=== PATIENT | male | born 1980 | race African-American/Black ===

== ENCOUNTER 2019-02-24 19:56 | Emergency (ER) | payer OTHER ==
[~2019-02-24] VITALS: Ht 175.3 cm; Wt 64.9 kg
[2019-02-24 20:01] VITALS: BP 142/78
--- NOTE | 2019-02-24 20:01 | NUR ---
ER Nurse Note: Pt BIB[place] [address] from [employer]. Per [employer], pt fell jumping fence, LT hand puncture. Pt got bit by [employer] K[employer]9 on LT foot. [employer] at pt side abnd signed log. Lac on RT thigh and anderson, no active bleeding; assessed by ER PA. Will continue to montior
[2019-02-24] MEDS ORDERED: Augmentin 875mg Tab ORAL ONE (20:15)
[2019-02-24] MEDS ORDERED: Acetaminophen 500mg (ES) tab ORAL ONE (20:15)
[2019-02-24] MEDS ORDERED: Albuterol ud Inhalation HHN ONE (20:15)
--- NOTE | 2019-02-24 20:35 | NUR ---
ER Nurse Note: Pt at radiology with [employer]. Active bleeding from buttocks; pt refuses to assess site. Breathing treatment adnibsited by Rt; all meds given and pt tolerated well. Pt a&ox3, follow commands, pt feeling anxious and hostile. Will continue to montior.
--- NOTE | 2019-02-24 21:06 | Diagnostic Imaging Report ---
Indication: Right hip pain Technique: 2 views of the right hip Comparison: none Findings: No acute fractures. No dislocations. The joint spaces are preserved Impression: Negative This agrees with the preliminary interpretation provided overnight by [facility] teleradiology service.
--- NOTE | 2019-02-24 21:06 | Diagnostic Imaging Report ---
Indication: Right lateral rib pain Technique: One view of the chest, 2 views of the right ribs Comparison: none Findings: Lungs are clear. No acute fractures. No evidence of pneumothorax. Normal heart size Impression: Negative
--- NOTE | 2019-02-24 21:36 | Emergency Room Report ---
History of Present Illness General Chief Complaint: Medical Clearance Present Illness Allergies: Coded Allergies: No Known Allergies (Unverified , 02/24/19) Patient History Past Medical History: see triage record Past Surgical History: none Pertinent Family History: none Reviewed Nursing Documentation: PMH: Agreed; PSxH: Agreed Review of Systems All Other Systems: negative except mentioned in HPI Physical Exam Vital Signs Date Time Temp Pulse Resp B/P (MAP) Pulse Ox O2 Delivery O2 Flow Rate FiO2 02/24/19 19:54 99.0 147 20 142/78 (99) 99 Room Air 02/24/19 20:23 21 Sp02 EP Interpretation: reviewed, normal General Appearance: no apparent distress, alert, GCS 15, non-toxic Head: normocephalic, atraumatic Eyes: bilateral eye normal inspection, bilateral eye PERRL ENT: hearing grossly normal, normal voice Neck: full range of motion Respiratory: lungs clear, normal breath sounds, no rhonchi, no respiratory distress, no accessory muscle use, speaking full sentences, wheezing, other - TTP to lateral right lower ribs Cardiovascular #1: regular rate, rhythm, normal capillary refill, tachycardia Cardiovascular #2: 2+ radial (R), 2+ radial (L), 2+ dorsalis pedis (R), 2+ dorsalis pedis (L) Gastrointestinal: non tender, soft Genitourinary: normal inspection, other - reproducible testicular hernia/ testicular swelling without tenderness. Musculoskeletal: gait/station normal, normal range of motion, other - enlarged scrotum - non tender secondary to reducible hernia, tender - lateral Right hIP TTP, TTP to the lower right ribs laterally, no flail chest. no midline neck or back ttp. Neurologic: alert, oriented x3, responsive, motor strength/tone normal, sensory intact, normal gait, speech normal, grossly normal Psychiatric: judgement/insight normal Skin: other - 3cm linear superficial bite laceration to the lateral aspect of the right thigh, the and 1.5 cm bite laceration with puncture wound to the right lateral calf. 0.4cm puncture wound on the plantar aspect of the left foot , and healed old 1cm laceration to the left palm. Medical Decision Making PA Attestation Dr. Lagunas is my supervising Physician whom patient management has been discussed with. Diagnostic Impression: Primary Impression: Dog bite of multiple sites Additional Impressions: Medical clearance for incarceration Tachycardia Contusion of right hip Qualified Codes: S70.01XA - Contusion of right hip, initial encounter Contusion of ribs Qualified Codes: S20.211A - Contusion of right front wall of thorax, initial encounter Acute exacerbation of chronic bronchitis ER Course 38 YO Male. presents to the ED accompanied by [employer] in custody for medical clearance for incarceration. PT C/O multiple wounds from dog bites. Pt. was apprehended by K[employer] after running from police. pt. reports hopping a fence and falling onto his right hip and now has right hip pain. pt. also reports pain to the lateral aspect of the right ribs. Pt. reports smoking hx of both tobacco and THC and has hx of bronchitis and anxiety. Pt. denies anterior CP. He reports some SOB due to rib pain s/p fall. he reports that he is UTD with tetanus vaccination. denies any other complaints at this time. Pt. with bite wounds to the lateral aspect of the right thigh, the right lateral calf, and the plantar aspect of the left foot. Denies numbness tingling or loss of sensation or gross motor movements of the extremities, incontinence of bowel or bladder. Denies Palpitations, LOC, AMS, dizziness, Changes in Vision, weakness or a sudden severe headache. Ddx considered but are not limited to Dog Bite, Circulatory Compromise, Hemorrhage, Head Trauma, [place], ACS, SI/HI, URI, SAH, Fractures, Dislocations, Tazer barbs, Abrasions. Vital signs: Tachycardic, remaining VS are WNL, pt. is afebrile H&PE are most consistent with: non life or limb threatening lacerations and puncture wounds secondary to dog bite, acute bronchitis exacerbation and contusion of ribs and right hip. no focal neurological deficits, no evidence of impending circulatory or airway compromise. NO obvious infections. ORDERS: -X-ray Right rib series and Right hip. ED INTERVENTIONS: -Albuterol HHN -Augmentin PO - Copious Wound irrigation under high pressure. - Bacitracin and Sterile dressings were applied. DISCHARGE: At this time pt. is stable for d/c to law enforcement. Will provide printed patient care instructions, and any necessary prescriptions. Care plan and follow up instructions have been discussed with the patient prior to discharge. Other X-Ray Diagnostic Results Other X-Ray Diagnostic Results #1: X-Ray ordered: Right HIP # of Views/Limited Vs Complete: 2 View Indication: Pain EP Interpretation: Yes PA Xray: Interpretation reviewed, by supervising MD, and agrees with findings. Interpretation: no dislocation, no soft tissue swelling, no fractures Impression: No acute disease Electronically Signed by: Nirali Brennan Other X-Ray Diagnostic Results #2: X-Ray ordered: Right Rib Series with PA # of Views/Limited Vs Complete: 4 View Indication: Pain EP Interpretation: Yes PA Xray: Interpretation reviewed, and agrees with findings. Interpretation: no dislocation, no soft tissue swelling, no fractures, other - Dextrocardia Impression: No acute disease Electronically Signed by: Nirali Eason PA-C Last Vital Signs Date Time Temp Pulse Resp B/P (MAP) Pulse Ox O2 Delivery O2 Flow Rate FiO2 02/24/19 21:02 98.9 02/24/19 20:33 141 20 100 Room Air 02/24/19 20:23 21 02/24/19 20:01 142/78 Disposition: D/C TO LAW ENFORCEMENT IN CUST Condition: Stable Scripts Amoxicillin/Potassium Clav 875-125* (AUGMENTIN 875-125 TABLET*) 1 Each Tablet 1 TAB ORAL TWICE A DAY for 7 Days, #14 TAB Prov: Nirali Eason 02/24/19 Departure Forms: [facility] Clearance Patient Instructions: Animal Bite, [id number], Medical Screening Exam Additional Instructions: Take medications as directed. Follow up with a Primary Care Provider in 3-5 days, even if your symptoms have resolved. --Please review list of primary care clinics, if you do not already have a primary care provider Return sooner to ED if new symptoms occur, or current symptoms become worse. - Please note that this Emergency Department Report was dictated using c-LEctatreating and pumping supervisor technology software, occasionally this can lead to erroneous entry secondary to interpretation by the dictation equipment. Nirali Eason Feb 24, 2019 21:36
[2019-02-24] MEDS ORDERED: AUGMENTIN 875-1 EAC1 ORAL (21:38)
[2019-02-24] MEDS ORDERED: Bacitracin Oint UD TOPIC ONE (21:45)
[2019-02-24 21:50] VITALS: BP 119/80
--- NOTE | 2019-02-24 21:50 | NUR ---
ER Nurse Note: Pt seen, treated, medically cleared to book by ERMD. Discharge instuctions and prescriptions given with repeat verbalization by [employer]. Emphasized to follow up with primay care provider; take whole course of medication. Explained each medication. All orders completed per ERMD orders. Pt a&ox4, VSS, no signs of distress. ID band removed. Pt left with all belongings, left with [employer].
== END 2019-02-24 21:50 ==
LOC: EDBD 19:56 → EMR 20:35
DX: S71.151A Open bite, right thigh, initial encounter (principal); S81.851A Open bite, right lower leg, initial encounter; S91.352A Open bite, left foot, initial encounter; W54.0XXA Bitten by dog, initial encounter; Y92.9 Unspecified place or not applicable; R00.0 Tachycardia, unspecified; S70.01XA Contusion of right hip, initial encounter; S20.211A Contusion of right front wall of thorax, initial encounter; J20.9 Acute bronchitis, unspecified
CPT/HCPCS: 94640; 99284